=== PATIENT | female | born 1940 | race Caucasian/White ===

== ENCOUNTER 2023-04-12 13:11 | Emergency (ER) | payer BC ==
[2023-04-12 13:27] VITALS: BP 152/88; PULSE 103; RESP 18; TEMP 98; BMI 36.0
[2023-04-12] MEDS ORDERED: ACETAMINOPHEN 325 MG TABLET (FP) PO ONE (13:49)
[2023-04-12] MEDS ORDERED: ACETAMINOPHEN 325 MG TABLET (FP) ONE (13:57)
== END 2023-04-12 15:40 | disposition home or self-care (01) ==
LOC: FER 13:11
DX: S42.202A Unspecified fracture of upper end of left humerus, initial encounter for closed fracture (principal); M25.512 Pain in left shoulder; W01.198A Fall on same level from slipping, tripping and stumbling with subsequent striking against other object, initial encounter; Y93.01 Activity, walking, marching and hiking
CPT/HCPCS: 70450-TC; 73030-TC-LT-FY; 73060-TC-LT-FY; 73070-TC-LT-FY; 99284-25